=== PATIENT | female | born 1970 | race Caucasian/White ===

== ENCOUNTER 2021-10-23 15:47 | Emergency (ER) | payer SELFPAY | END 2021-10-23 18:05 | disposition left against medical advice (07) | LOC: ER 15:48 | DX: R07.9 Chest pain, unspecified (principal); Z53.21 Procedure and treatment not carried out due to patient leaving prior to being seen by health care provider ==

== ENCOUNTER 2022-01-15 15:46 | Inpatient (IN) | payer BC ==
[~2022-01-15] VITALS: Ht 157.5 cm; Wt 57.3 kg
[2022-01-15] MEDS ORDERED: ondansetron/PF 4mg/2ml inj IV ONE (16:50)
[2022-01-15] MEDS ORDERED: morphine 4 MG/ML inj SYRINge IV ONE (16:50)
[2022-01-15 16:57] LABS: BASOPHILS % (AUTO) 0.2 % (0-1); EOSINOPHILS % (AUTO) 0 % (0-6); HEMATOCRIT 42.3 % (35.0-45.0); HEMOGLOBIN 14.4 g/dl (12.0-16.0); LYMPHOCYTES # (AUTO) 0.8 X10'3 (1.1-4.8); LYMPHOCYTES % (AUTO) 10.7 % (21-51); MEAN CORPUSCULAR HEMOGLOBIN 34.2 PG (27.0-31.0); MEAN CORPUSCULAR VOLUME 100.4 FL (78-98); MEAN PLATELET VOLUME 6.1 FL (7.4-10.4); MONOCYTES # (AUTO) 0.3 X10'3 (0-0.9); NEUTROPHILS # (AUTO) 6.2 X10'3 (1.8-7.7); NEUTROPHILS % (AUTO) 85.1 % (42-75); PLATELET COUNT 332 X10'3 (140-440); RED BLOOD COUNT 4.21 X10'6 (4.20-5.60); RED CELL DISTRIBUTION WIDTH 14.9 % (11.5-14.5); WHITE BLOOD COUNT 7.3 X10'3 (4.5-11.0)
[2022-01-15 17:04] LABS: ALANINE AMINOTRANSFERASE 35 U/L (12-78); ALBUMIN 4.7 G/DL (3.4-5.0); ALBUMIN/GLOBULIN RATIO 1.1 (1.1-1.5); ALKALINE PHOSPHATASE 88 IU/L (46-116); ANION GAP 27 (8-16); ASPARTATE AMINO TRANSFERASE 46 U/L (10-37); BILIRUBIN,TOTAL 0.5 MG/DL (0.1-1.0); BLOOD UREA NITROGEN 13 MG/DL (7-18); CALCIUM 10.1 MG/DL (8.5-10.1); CHLORIDE 96 MMOL/L (99-107); CREATININE 0.65 MG/DL (0.40-0.90); GLUCOSE 76 MG/DL (70-104); LIPASE 340 U/L (73-393); POTASSIUM 3.9 MMOL/L (3.5-5.1); SODIUM 137 MMOL/L (135-145); TOTAL PROTEIN 9.1 G/DL (6.4-8.2); eGFR > 90 ML/MIN
[2022-01-15 17:12] LABS: TOTAL CARBON DIOXIDE 14.5 MMOL/L (24-32)
[2022-01-15 17:16] LABS: MAGNESIUM 2.2 MG/DL (1.5-2.4)
[2022-01-15] MEDS ORDERED: iohexol 350MG/ML 100ml bottle IV ONE (17:32)
[2022-01-15] MEDS ORDERED: HYDROmorphone/PF 0.2 MG/ML SYRINGE IV ONE (17:40)
[2022-01-15] MEDS ORDERED: ringers solution, lacted 1,000 ML IV ONE (17:40)
[2022-01-15] MEDS ORDERED: HYDROmorphone 1 mg/ml syringe IV ONE ×2 (18:20→19:50)
[2022-01-15] MEDS ORDERED: normal saline 1000ml 1,000 ML IV ONE (19:50)
[2022-01-15] MEDS ORDERED: piperacillin/tazo 4.5gm/100ml 100 ML IV ONE (20:10)
[2022-01-15 20:45] LABS: CLARITY,URINE CLEAR (Clear); GLUCOSE, URINE NEGATIVE (Neg); KETONES,URINE >=80 mg/dl (Neg); LEUKOCYTE ESTERASE ,URINE NEGATIVE (Neg); NITRITES, URINE NEGATIVE (Neg); OCCULT BLOOD,URINE TRACE-LYSED (Neg); PROTEIN,URINE NEGATIVE (Neg); UROBILINOGEN,URINE 0.2 E.U/dL (0.2-1.0)
[2022-01-15 20:46] LABS: URINE HCG NEGATIVE (NEG)
[2022-01-15 20:47] LABS: COLOR,URINE STRAW (Yellow); UA COLLECTION TYPE NON-SPECIFIED
[2022-01-15 20:51] LABS: BACTERIA,URINE FEW /HPF (Neg); RBC,URINE 0-2 /HPF (0-2); WBC,URINE 0-4 /HPF (0-4)
[2022-01-15 20:52] LABS: SQUAMOUS EPITHELIAL CELL,UR MANY /LPF (FEW)
[2022-01-15] MEDS ORDERED: temazepam 15mg capsule PO PRN (21:00)
[2022-01-15 21:08] LABS: URINE AMPHETAMINE SCREEN NEGATIVE (Neg); URINE BARBITUATE SCREEN NEGATIVE (Neg); URINE BENZODIAZEPINES SCREEN NEGATIVE (Neg); URINE CANNABINOID SCREEN NEGATIVE (Neg); URINE COCAINE SCREEN NEGATIVE (Neg); URINE METHADONE SCREEN NEGATIVE (Neg); URINE OPIATE SCREEN POSITIVE (Neg); URINE PHENCYCLIDINE SCREEN NEGATIVE (Neg)
[2022-01-15] MEDS ORDERED: HYDROcodone/acetaminophen 5mg/325mg tablet PO PRN (21:10)
[2022-01-15] MEDS ORDERED: HYDROmorphone/PF 0.2 MG/ML SYRINGE IV PRN (21:10)
[2022-01-15] MEDS ORDERED: morphine 2 MG/ML inj. syringe IV PRN ×2 (21:10)
[2022-01-15] MEDS ORDERED: magnesium 4gm in 100ml NS 100 ML IV PRN (21:10)
[2022-01-15] MEDS ORDERED: acetaminophen 325mg tablet PO PRN ×2 (21:10)
[2022-01-15] MEDS ORDERED: potassium CL 10mEq/100ml bag 100 ML IV PRN (21:10)
[2022-01-15] MEDS ORDERED: magnesium Cl slow-release 64mg tablet PO PRN (21:10)
[2022-01-15] MEDS ORDERED: ondansetron/PF 4mg/2ml inj IV PRN (21:10)
[2022-01-15] MEDS ORDERED: POTASSIUM BICARB 20meq eff tab 20 MEQ TABLET.EFF PO PRN (21:10)
[2022-01-15] MEDS ORDERED: magnesium 2GM in 50ml NS 50 ML IV PRN (21:10)
[2022-01-15] MEDS: normal saline 1000ml 1,000 ML IV SCH (21:56)
[2022-01-15] MEDS: HYDROcodone/acetaminophen 10/325mg tab PO PRN (22:49)
[2022-01-16] MEDS: metroNIDAZOLE-Flagyl 500mg/NS 100 ML IV SCH ×3 (00:17→16:10)
[2022-01-16] MEDS: pantoprazole 40mg Tablet.DR PO SCH ×2 (00:17→08:57)
[2022-01-16] MEDS: HYDROmorphone inj. 0.5 MG/0.5 ML DISP.SYRIN IV PRN ×4 (00:45→19:22)
[2022-01-16] MEDS ORDERED: NO HOME MEDS (02:27)
[2022-01-16] MEDS: HYDROcodone/acetaminophen 10/325mg tab PO PRN ×4 (05:00→22:43)
[2022-01-16] MEDS: ciprofloxacin lact 400MG/200ML 200 ML IV SCH ×2 (07:54→19:24)
[2022-01-16] MEDS: normal saline 1000ml 1,000 ML IV SCH ×3 (07:54→16:09)
[2022-01-16] MEDS: K and/or MAG REPLACEMENT MC SCH ×2 (08:00→19:20)
[2022-01-16 08:44] LABS: BASOPHILS % (AUTO) 0.2 % (0-1); EOSINOPHILS % (AUTO) 0.1 % (0-6); HEMATOCRIT 36.5 % (35.0-45.0); HEMOGLOBIN 12.6 g/dl (12.0-16.0); LYMPHOCYTES # (AUTO) 0.8 X10'3 (1.1-4.8); MEAN CORPUSCULAR HEMOGLOBIN 34.6 PG (27.0-31.0); MEAN CORPUSCULAR HGB CONC 34.5 g/dL (33.0-36.5); MEAN CORPUSCULAR VOLUME 100.4 FL (78-98); MEAN PLATELET VOLUME 5.9 FL (7.4-10.4); MONOCYTES # (AUTO) 0.6 X10'3 (0-0.9); MONOCYTES % (AUTO) 8.5 % (2-12); NEUTROPHILS # (AUTO) 5.9 X10'3 (1.8-7.7); NEUTROPHILS % (AUTO) 80.2 % (42-75); PLATELET COUNT 244 X10'3 (140-440); RED BLOOD COUNT 3.63 X10'6 (4.20-5.60); RED CELL DISTRIBUTION WIDTH 14.9 % (11.5-14.5); WHITE BLOOD COUNT 7.3 X10'3 (4.5-11.0)
[2022-01-16] MEDS: heparin, porcine 5000 units/ml vial SQ SCH ×2 (08:58→19:25)
[2022-01-16 09:06] LABS: ALANINE AMINOTRANSFERASE 30 U/L (12-78); ALBUMIN/GLOBULIN RATIO 1.1 (1.1-1.5); ALKALINE PHOSPHATASE 66 IU/L (46-116); ANION GAP 16 (8-16); ASPARTATE AMINO TRANSFERASE 34 U/L (10-37); BILIRUBIN,TOTAL 0.8 MG/DL (0.1-1.0); BLOOD UREA NITROGEN 9 MG/DL (7-18); BUN/CREATININE RATIO 13.4 (6.6-38.0); CALCIUM 8.9 MG/DL (8.5-10.1); CHLORIDE 97 MMOL/L (99-107); CREATININE 0.67 MG/DL (0.40-0.90); GLUCOSE 97 MG/DL (70-104); POTASSIUM 3.6 MMOL/L (3.5-5.1); SODIUM 133 MMOL/L (135-145); TOTAL CARBON DIOXIDE 19.9 MMOL/L (24-32); TOTAL PROTEIN 7.5 G/DL (6.4-8.2); eGFR > 90 ML/MIN
[2022-01-16] MEDS ORDERED: iohexol 350MG/ML 100ml bottle IV ONE (10:44)
--- NOTE | 2022-01-16 12:13 | NUR ---
RETURNED FROM CT
[2022-01-16] MEDS ORDERED: HYDR-3973 PO (12:48)
--- NOTE | 2022-01-16 15:45 | NUR ---
report received from storage battery charger Steve
--- NOTE | 2022-01-16 15:50 | NUR ---
Pt arrived to O/N floor via wheelchair and settled in room 4029D
[2022-01-16 16:00] VITALS: BP 145/87
[2022-01-16 18:00] VITALS: BP 141/90
--- NOTE | 2022-01-16 18:55 | NUR ---
Problems reprioritized. Patient report given, questions answered & plan of care reviewed with HILL Jenkins.
--- NOTE | 2022-01-16 19:01 | NUR ---
Patient in room ORTHO 4022. I have received report from JANNIE ALEJANDRE and had the opportunity to ask questions and assume patient care.
--- NOTE | 2022-01-16 19:57 | NUR ---
generation engineering technologist called me with patient's heart rate in the 140's; she was up out of bed to the bathroom. She verbalized some racing of the heart but otherwise felt ok. I informed the pt's nurse and the patient said she would go back to bed soon.
[2022-01-16] MEDS: pantoprazole 40MG/NS 100ML BAG 100 ML IV SCH (20:37)
[2022-01-16 22:00] VITALS: BP 130/99
[2022-01-17] MEDS: metroNIDAZOLE-Flagyl 500mg/NS 100 ML IV SCH ×2 (00:13→09:23)
[2022-01-17] MEDS: normal saline 1000ml 1,000 ML IV SCH (01:59)
[2022-01-17] MEDS: HYDROcodone/acetaminophen 10/325mg tab PO PRN ×3 (02:49→12:05)
[2022-01-17 06:00] VITALS: BP 121/65
[2022-01-17 06:15] LABS: BASOPHILS % (AUTO) 0.5 % (0-1); EOSINOPHILS % (AUTO) 0.6 % (0-6); HEMOGLOBIN 11.7 g/dl (12.0-16.0); MEAN CORPUSCULAR HGB CONC 33.6 g/dL (33.0-36.5); MEAN CORPUSCULAR VOLUME 101.2 FL (78-98); MEAN PLATELET VOLUME 6.6 FL (7.4-10.4); MONOCYTES # (AUTO) 0.4 X10'3 (0-0.9); MONOCYTES % (AUTO) 11.4 % (2-12); NEUTROPHILS # (AUTO) 2.4 X10'3 (1.8-7.7); NEUTROPHILS % (AUTO) 61.5 % (42-75); PLATELET COUNT 196 X10'3 (140-440); RED BLOOD COUNT 3.46 X10'6 (4.20-5.60); RED CELL DISTRIBUTION WIDTH 14.9 % (11.5-14.5); WHITE BLOOD COUNT 3.8 X10'3 (4.5-11.0)
[2022-01-17 06:27] LABS: ALANINE AMINOTRANSFERASE 25 U/L (12-78); ALBUMIN 3.5 G/DL (3.4-5.0); ALBUMIN/GLOBULIN RATIO 1.1 (1.1-1.5); ALKALINE PHOSPHATASE 59 IU/L (46-116); ANION GAP 11 (8-16); ASPARTATE AMINO TRANSFERASE 36 U/L (10-37); BILIRUBIN,TOTAL 0.6 MG/DL (0.1-1.0); BLOOD UREA NITROGEN 4 MG/DL (7-18); CHLORIDE 102 MMOL/L (99-107); CREATININE 0.57 MG/DL (0.40-0.90); GLUCOSE 97 MG/DL (70-104); SODIUM 138 MMOL/L (135-145); TOTAL CARBON DIOXIDE 25.5 MMOL/L (24-32); TOTAL PROTEIN 6.7 G/DL (6.4-8.2); eGFR > 90 ML/MIN
--- NOTE | 2022-01-17 06:36 | NUR ---
Problems reprioritized. Patient report given, questions answered & plan of care reviewed with OLAF ALEJANDRE.
[2022-01-17] MEDS: POTASSIUM BICARB 20meq eff tab 20 MEQ TABLET.EFF PO PRN ×2 (07:15→11:27)
[2022-01-17] MEDS: K and/or MAG REPLACEMENT MC SCH (08:00)
[2022-01-17] MEDS: ciprofloxacin lact 400MG/200ML 200 ML IV SCH (08:15)
--- NOTE | 2022-01-17 09:03 | NUR ---
PAGER ID: [phone] MESSAGE: Cas[place] sheth/neuro [id number] re: Cailin [place] [id number]. requesting maalox c/o heartburn. can we advance diet to regular? Thank you
[2022-01-17] MEDS: heparin, porcine 5000 units/ml vial SQ SCH (09:24)
[2022-01-17] MEDS: HYDROmorphone inj. 0.5 MG/0.5 ML DISP.SYRIN IV PRN (09:28)
[2022-01-17] MEDS ORDERED: HYDROmorphone inj. 0.5 MG/0.5 ML DISP.SYRIN IV PRN (09:45)
[2022-01-17 10:00] VITALS: BP 156/85
[2022-01-17] MEDS: pantoprazole 40MG/NS 100ML BAG 100 ML IV SCH (10:52)
[2022-01-17] MEDS ORDERED: OMEP20TA43 PO (11:11)
[2022-01-17] MEDS ORDERED: POLY17PO10 PO (11:11)
[2022-01-17] MEDS ORDERED: HYDR-3965 PO (11:11)
--- NOTE | 2022-01-17 14:49 | NUR ---
pt's HR in 140s with ambulation, MD Felton aware. pt appears to be stable.
--- NOTE | 2022-01-17 15:25 | NUR ---
pt discharged with in private vehicle. tele d/c'd, iv taken out with tip intact. no meds in pharmacy. pt given paper rx for d/c meds. belongings on person. pt given information for links to primary care available for f/u. pt doesn't seem distressed yet still c/o of some abdominal pain. all belongings taken from room.
== END 2022-01-17 15:24 | disposition home or self-care (01) | DRG 392 ==
LOC: ER 15:47 → ED HOLD 21:11 → ORTHO 4S 01-16 15:50
PROVIDERS: ADMIT Internal Medicine; ATTEND Family Medicine
PROC: BW211ZZ Computerized Tomography (CT Scan) of Abdomen and Pelvis using Low Osmolar Contrast (ICD-10-PCS; principal; 2022-01-15)
PROC: B4201ZZ Computerized Tomography (CT Scan) of Abdominal Aorta using Low Osmolar Contrast (ICD-10-PCS; 2022-01-16)
PROC: B4241ZZ Computerized Tomography (CT Scan) of Superior Mesenteric Artery using Low Osmolar Contrast (ICD-10-PCS; 2022-01-16)
PROC: B4281ZZ Computerized Tomography (CT Scan) of Bilateral Renal Arteries using Low Osmolar Contrast (ICD-10-PCS; 2022-01-16)
PROC: B42C1ZZ Computerized Tomography (CT Scan) of Pelvic Arteries using Low Osmolar Contrast (ICD-10-PCS; 2022-01-16)
PROC: B42H1ZZ Computerized Tomography (CT Scan) of Bilateral Lower Extremity Arteries using Low Osmolar Contrast (ICD-10-PCS; 2022-01-16)
PROC: B4211ZZ Computerized Tomography (CT Scan) of Celiac Artery using Low Osmolar Contrast (ICD-10-PCS; 2022-01-16)
DX: K58.9 Irritable bowel syndrome, unspecified (principal); E87.2 Acidosis; G89.29 Other chronic pain; K29.70 Gastritis, unspecified, without bleeding; E86.0 Dehydration; M54.50 Low back pain, unspecified; Z90.49 Acquired absence of other specified parts of digestive tract; Z72.89 Other problems related to lifestyle
CPT/HCPCS: 36415; 71045; 74174; 74177; 80053; 80305; 81001; 81025; 83605; 83690; 83735; 84132; 84145; 85025; 87040; 87081; 99285; C9113; G0378; J0744; J1170; J1644; J2270; J2405; J2543; J3490; J7030; J7120; Q9967

== ENCOUNTER 2023-05-20 20:58 | Emergency (ER) | payer BC ==
[~2023-05-20] VITALS: Ht 157.5 cm; Wt 58.0 kg
[~2023-05-20 20:58] MED LIST: OMEP20TA43 PO
[2023-05-20] MEDS ORDERED: normal saline 1000ml 1,000 ML IV ONE (21:35)
[2023-05-20] MEDS ORDERED: ondansetron/PF 4mg/2ml inj IV ONE (21:35)
[2023-05-20] MEDS ORDERED: HYDROmorphone 1 mg/ml syringe IV ONE (21:35)
[2023-05-21] MEDS: HYDROmorphone inj. 0.5 MG/0.5 ML DISP.SYRIN IV PRN ×4 (01:12→03:44)
[2023-05-21 02:00] LABS: BASOPHILS % (AUTO) 0 % (0-1); EOSINOPHILS % (AUTO) 0 % (0-6); HEMATOCRIT 42.2 % (35.0-45.0); HEMOGLOBIN 14.4 g/dl (12.0-16.0); LYMPHOCYTES # (AUTO) 0.6 X10'3 (1.1-4.8); LYMPHOCYTES % (AUTO) 9.9 % (21-51); MEAN CORPUSCULAR HEMOGLOBIN 32.9 PG (27.0-31.0); MEAN CORPUSCULAR HGB CONC 34.1 g/dL (33.0-36.5); MEAN CORPUSCULAR VOLUME 96.5 FL (78-98); MEAN PLATELET VOLUME 5.9 FL (7.4-10.4); MONOCYTES # (AUTO) 0.3 X10'3 (0-0.9); MONOCYTES % (AUTO) 4.9 % (2-12); NEUTROPHILS # (AUTO) 5.3 X10'3 (1.8-7.7); NEUTROPHILS % (AUTO) 85.2 % (42-75); PLATELET COUNT 309 X10'3 (140-440); RED BLOOD COUNT 4.37 X10'6 (4.20-5.60); RED CELL DISTRIBUTION WIDTH 12.9 % (11.5-14.5); WHITE BLOOD COUNT 6.2 X10'3 (4.5-11.0)
[2023-05-21 02:11] LABS: APTT 26 SECONDS (22-32)
[2023-05-21 02:12] LABS: INR 0.9 INR
[2023-05-21 02:13] LABS: ALANINE AMINOTRANSFERASE 17 U/L (12-78); ALBUMIN 3.9 G/DL (3.4-5.0); ALBUMIN/GLOBULIN RATIO 0.9 (1.1-1.5); ALKALINE PHOSPHATASE 79 IU/L (46-116); ANION GAP 9 (8-16); ASPARTATE AMINO TRANSFERASE 11 U/L (10-37); BILIRUBIN,TOTAL 0.6 MG/DL (0.1-1.0); BLOOD UREA NITROGEN 14 MG/DL (7-18); BUN/CREATININE RATIO 19.2 (10.0-20.0); CALCIUM 8.9 MG/DL (8.5-10.1); CHLORIDE 96 MMOL/L (99-107); CREATININE 0.73 MG/DL (0.40-0.90); GLUCOSE 120 MG/DL (70-104); POTASSIUM 3.5 MMOL/L (3.5-5.1); SODIUM 132 MMOL/L (135-145); TOTAL CARBON DIOXIDE 27.2 MMOL/L (24-32); TOTAL PROTEIN 8.1 G/DL (6.4-8.2); eCRCL 70 ML/MIN; eGFR 83 ML/MIN
[2023-05-21 02:21] LABS: AMYLASE 77 U/L (25-115); LIPASE 83 U/L (16-77); MAGNESIUM 2.1 MG/DL (1.5-2.4); PRO BRAIN NATRIURETIC PEPTIDE 110 PG/ML (0-125)
[2023-05-21] MEDS ORDERED: normal saline 1000ml 1,000 ML IV ONE (03:15)
[2023-05-21] MEDS ORDERED: HYDROmorphone inj. 0.5 MG/0.5 ML DISP.SYRIN IV ONE (05:05)
[2023-05-21 05:25] VITALS: BP 98/63; PULSE 88; RESP 16; TEMP 98; O2SAT 98
[2023-05-21] MEDS ORDERED: OXYC-658 PO ×2 (05:27→05:42)
[2023-05-21] MEDS ORDERED: ONDA4TAB12 PO ×2 (05:27→05:42)
== END 2023-05-21 05:47 | disposition home or self-care (01) ==
LOC: ER 20:59
DX: K86.1 Other chronic pancreatitis (principal); R11.2 Nausea with vomiting, unspecified; R00.0 Tachycardia, unspecified; Z90.49 Acquired absence of other specified parts of digestive tract; Z79.899 Other long term (current) drug therapy
CPT/HCPCS: 36415; 71045; 80053; 82150; 83690; 83735; 83880; 84484; 85025; 85610; 85730; 93005; 96361; 96374; 96375; 96376; 99285; J1170; J2405; J7030